=== PATIENT | male | born 1945 | race Caucasian/White ===

== ENCOUNTER 2017-04-25 11:12 | Inpatient (IN) | payer MEDICARE, BC ==
[2017-04-25] MEDS ORDERED: IPRATROPIUM-ALBUTEROL 3 ML NEB INHALATION STA ×2 (11:25→13:24)
[2017-04-25] MEDS ORDERED: MAGNESIUM SULFATE-D5W PMX 1 GM in DEXTROSE/WATER 1 100ML.BAG IVPB STA (11:25)
[2017-04-25] MEDS ORDERED: SODIUM CHLORIDE 0.9% 1,000 ML IV STA (11:25)
[2017-04-25] MEDS ORDERED: methylPREDNISolone SOD SUCCI 125 MG/2 ML VIAL IV STA (11:25)
--- NOTE | 2017-04-25 11:29 | ED ---
SOB HPI - General Chief Complaint: Shortness of Breath Stated Complaint: SOB Time Seen by Provider: 04/25/17 11:21 Source: patient, RN notes reviewed Mode of arrival: ambulatory Limitations: no limitations - History of Present Illness Initial Comments: This is a 72-year-old male history of asthma who is a former smoker who quit in 1967 who states he had developed pneumonia before [place] of this past year has had some breathing difficulty since then who does state he had the onset over last several days of progressively worsening shortness of breath no fevers chills or sweats he has had nasal congestion with nasal drip he states he blows his nose and occasionally has green material out of it. He has no chest pain just shortness of breath and exertional dyspnea. No edema to his lower extremities. No other complaints such as earache or sore throat. MD Complaint: shortness of breath, cough - Related Data Home Medications Medication Instructions Recorded Confirmed Losartan Potassium [Cozaar] 100 mg PO DAILY 09/19/13 04/25/17 Metoprolol Tartrate [Lopressor] 50 mg PO BID 09/19/13 04/25/17 Omeprazole [PriLOSEC] 20 mg PO BID 09/19/13 04/25/17 Ipratropium Nebulized [Atrovent 0.5 mg INHALATION RT-BID 03/03/15 04/25/17 Nebulized] Albuterol Nebulized [Ventolin 2.5 mg INHALATION RT-Q4H PRN 02/26/16 04/25/17 Nebulized] Aspirin EC [Ecotrin] 325 mg PO QAM 02/26/16 04/25/17 Cetirizine HCl [Zyrtec] 10 mg PO DAILY 02/26/16 04/25/17 Pravastatin Sodium [Pravachol] 20 mg PO HS 02/26/16 04/25/17 Ubidecarenone [Co Q-10] 200 mg PO DAILY 02/26/16 04/25/17 Beclomethasone Dipropionate [Qvar 2 puff INHALATION RT-BID 04/25/17 04/25/17 80 mcg] Budesonide [Pulmicort] 0.5 mg INHALATION RT-BID 04/25/17 04/25/17 Hydrochlorothiazide [Hydrodiuril] 25 mg PO DAILY 04/25/17 04/25/17 Tamsulosin HCl [Flomax] 0.4 mg PO DAILY 04/25/17 04/25/17 Allergies Allergy/AdvReac Type Severity Reaction Status Date / Time shellfish derived Allergy Anaphylaxis Verified 04/25/17 11:28 bug bites Allergy Unknown Uncoded 04/25/17 11:16 cats Allergy Unknown Uncoded 04/25/17 11:16 cockroaches Allergy Unknown Uncoded 04/25/17 11:16 dogs Allergy Unknown Uncoded 04/25/17 11:16 grass Allergy Unknown Uncoded 04/25/17 11:16 mold Allergy Unknown Uncoded 04/25/17 11:16 polln Allergy Unknown Uncoded 04/25/17 11:16 ragweed Allergy Unknown Uncoded 04/25/17 11:16 soy Allergy Unknown Uncoded 04/25/17 11:16 Vinegar Allergy Unknown Uncoded 04/25/17 11:16 Review of Systems ROS Statement: Those systems with pertinent positive or pertinent negative responses have been documented in the HPI. ROS Other: All systems not noted in ROS Statement are negative. Past Medical History Past Medical History: Asthma, GERD/Reflux, Hyperlipidemia, Hypertension, Osteoarthritis (OA) Additional Past Medical History / Comment(s): sinus problems, hx hiatal hernia History of Any Multi-Drug Resistant Organisms: None Reported Past Surgical History: Appendectomy, Cholecystectomy, Hernia Repair, Orthopedic Surgery Additional Past Surgical History / Comment(s): Shoulder Surgery Past Anesthesia/Blood Transfusion Reactions: No Reported Reaction Past Psychological History: No Psychological Hx Reported Smoking Status: Never smoker Past Alcohol Use History: Rare Past Drug Use History: None Reported - Past Family History Father Family Medical History: Congestive Heart Failure (CHF), Diabetes Mellitus General Exam - General Exam Comments Initial Comments: This is a well-developed well-nourished awake alert oriented 3 male Limitations: no limitations General appearance: alert, anxious, in distress Head exam: Present: atraumatic, normocephalic, normal inspection Eye exam: Present: normal appearance, PERRL, EOMI. Absent: scleral icterus, conjunctival injection, periorbital swelling ENT exam: Present: mucous membranes dry, TM's normal bilaterally, other (Boggy nasal mucosa no overt drainage at this time.) Neck exam: Present: normal inspection, full ROM, other (No stridor JVD or bruits ). Absent: tenderness, meningismus, lymphadenopathy Respiratory exam: Present: wheezes, accessory muscle use, decreased breath sounds Cardiovascular Exam: Present: regular rate, normal rhythm, normal heart sounds. Absent: systolic murmur, diastolic murmur, rubs, gallop, clicks GI/Abdominal exam: Present: soft, normal bowel sounds. Absent: distended, tenderness, guarding, rebound, rigid Extremities exam: Present: normal inspection, full ROM, normal capillary refill. Absent: tenderness, pedal edema, joint swelling, calf tenderness Back exam: Present: normal inspection Neurological exam: Present: alert, oriented X3, CN II-XII intact Psychiatric exam: Present: normal affect, normal mood Skin exam: Present: warm, dry, intact, normal color. Absent: rash Course Vital Signs 04/25/17 04/25/17 04/25/17 11:14 11:30 11:39 Temperature 99.0 F Pulse Rate 94 87 84 Respiratory 26 H Rate Blood Pressure 161/94 O2 Sat by Pulse 95 Oximetry 04/25/17 04/25/17 04/25/17 11:40 12:59 13:27 Temperature Pulse Rate 83 83 79 Respiratory 24 22 Rate Blood Pressure 126/101 120/81 O2 Sat by Pulse 93 L 91 L Oximetry 04/25/17 04/25/17 04/25/17 13:38 14:29 15:29 Temperature Pulse Rate 79 79 82 Respiratory 20 20 Rate Blood Pressure 138/77 127/70 O2 Sat by Pulse 90 L 91 L Oximetry - Reevaluation(s) Reevaluation #1: 04/25/17 13:24 After initial treatment the patient states he is started feel somewhat better but physical exam reveals markedly diminished breath sounds still with diffuse wheezing. Repeat updraft has been ordered. Reevaluation #2: 04/25/17 15:44 Patient still is dyspneic with wheezing bilaterally. He will be admitted we did a long discussion regarding previous reactions to shellfish he had a very bad reaction with diffuse swelling he does not want to have a CAT scan. He'll be admitted for evaluation we performed by Dr. Wilkerson. Nuclear medicine scan is considered. Medical Decision Making - Lab Data Result diagrams: 04/25/17 11:38 04/25/17 11:38 Lab Results 04/25/17 04/25/17 04/25/17 Range/Units 11:38 11:38 11:38 WBC 10.2 (3.8-10.6) k/uL RBC 5.86 (4.30-5.90) m/uL Hgb 16.7 (13.0-17.5) gm/dL Hct 52.4 (39.0-53.0) % MCV 89.4 (80.0-100.0) fL MCH 28.5 (25.0-35.0) pg MCHC 31.9 (31.0-37.0) g/dL RDW 13.3 (11.5-15.5) % Plt Count 279 (150-450) k/uL Neutrophils % 64 % Lymphocytes % 19 % Monocytes % 5 % Eosinophils % 10 % Basophils % 2 % Neutrophils # 6.5 (1.3-7.7) k/uL Lymphocytes # 1.9 (1.0-4.8) k/uL Monocytes # 0.5 (0-1.0) k/uL Eosinophils # 1.0 H (0-0.7) k/uL Basophils # 0.2 (0-0.2) k/uL PT (9.0-12.0) sec INR (<1.2) APTT (22.0-30.0) sec D-Dimer (<0.60) mg/L FEU Sodium 140 (137-145) mmol/L Potassium 4.6 (3.5-5.1) mmol/L Chloride 102 (98-107) mmol/L Carbon Dioxide 27 (22-30) mmol/L Anion Gap 11 mmol/L BUN 15 (9-20) mg/dL Creatinine 0.85 (0.66-1.25) mg/dL Est GFR (MDRD) Af Amer >60 (>60 ml/min/1.73 sqM) Est GFR (MDRD) Non-Af >60 (>60 ml/min/1.73 sqM) Glucose 95 (74-99) mg/dL Plasma Lactic Acid Vincent (0.7-2.0) mmol/L Calcium 9.6 (8.4-10.2) mg/dL Magnesium 1.9 (1.6-2.3) mg/dL Total Bilirubin 1.7 H (0.2-1.3) mg/dL AST 30 (17-59) U/L ALT 42 (21-72) U/L Alkaline Phosphatase 101 (38-126) U/L Total Creatine Kinase 203 H (55-170) U/L CK-MB (CK-2) 3.4 H* (0.0-2.4) ng/mL CK-MB (CK-2) Rel Index 1.7 Troponin I <0.012 (0.000-0.034) ng/mL NT-Pro-B Natriuret Pep pg/mL Total Protein 7.2 (6.3-8.2) g/dL Albumin 4.1 (3.5-5.0) g/dL Influenza Type A RNA (Not Detectd) Influenza Type B (PCR) (Not Detectd) 04/25/17 04/25/17 04/25/17 Range/Units 11:38 11:38 11:38 WBC (3.8-10.6) k/uL RBC (4.30-5.90) m/uL Hgb (13.0-17.5) gm/dL Hct (39.0-53.0) % MCV (80.0-100.0) fL MCH (25.0-35.0) pg MCHC (31.0-37.0) g/dL RDW (11.5-15.5) % Plt Count (150-450) k/uL Neutrophils % % Lymphocytes % % Monocytes % % Eosinophils % % Basophils % % Neutrophils # (1.3-7.7) k/uL Lymphocytes # (1.0-4.8) k/uL Monocytes # (0-1.0) k/uL Eosinophils # (0-0.7) k/uL Basophils # (0-0.2) k/uL PT 10.3 (9.0-12.0) sec INR 1.1 (<1.2) APTT 23.9 (22.0-30.0) sec D-Dimer 0.78 H (<0.60) mg/L FEU Sodium (137-145) mmol/L Potassium (3.5-5.1) mmol/L Chloride (98-107) mmol/L Carbon Dioxide (22-30) mmol/L Anion Gap mmol/L BUN (9-20) mg/dL Creatinine (0.66-1.25) mg/dL Est GFR (MDRD) Af Amer (>60 ml/min/1.73 sqM) Est GFR (MDRD) Non-Af (>60 ml/min/1.73 sqM) Glucose (74-99) mg/dL Plasma Lactic Acid Vincent 1.0 (0.7-2.0) mmol/L Calcium (8.4-10.2) mg/dL Magnesium (1.6-2.3) mg/dL Total Bilirubin (0.2-1.3) mg/dL AST (17-59) U/L ALT (21-72) U/L Alkaline Phosphatase (38-126) U/L Total Creatine Kinase (55-170) U/L CK-MB (CK-2) (0.0-2.4) ng/mL CK-MB (CK-2) Rel Index Troponin I (0.000-0.034) ng/mL NT-Pro-B Natriuret Pep 39 pg/mL Total Protein (6.3-8.2) g/dL Albumin (3.5-5.0) g/dL Influenza Type A RNA (Not Detectd) Influenza Type B (PCR) (Not Detectd) 04/25/17 Range/Units 11:40 WBC (3.8-10.6) k/uL RBC (4.30-5.90) m/uL Hgb (13.0-17.5) gm/dL Hct (39.0-53.0) % MCV (80.0-100.0) fL MCH (25.0-35.0) pg MCHC (31.0-37.0) g/dL RDW (11.5-15.5) % Plt Count (150-450) k/uL Neutrophils % % Lymphocytes % % Monocytes % % Eosinophils % % Basophils % % Neutrophils # (1.3-7.7) k/uL Lymphocytes # (1.0-4.8) k/uL Monocytes # (0-1.0) k/uL Eosinophils # (0-0.7) k/uL Basophils # (0-0.2) k/uL PT (9.0-12.0) sec INR (<1.2) APTT (22.0-30.0) sec D-Dimer (<0.60) mg/L FEU Sodium (137-145) mmol/L Potassium (3.5-5.1) mmol/L Chloride (98-107) mmol/L Carbon Dioxide (22-30) mmol/L Anion Gap mmol/L BUN (9-20) mg/dL Creatinine (0.66-1.25) mg/dL Est GFR (MDRD) Af Amer (>60 ml/min/1.73 sqM) Est GFR (MDRD) Non-Af (>60 ml/min/1.73 sqM) Glucose (74-99) mg/dL Plasma Lactic Acid Vincent (0.7-2.0) mmol/L Calcium (8.4-10.2) mg/dL Magnesium (1.6-2.3) mg/dL Total Bilirubin (0.2-1.3) mg/dL AST (17-59) U/L ALT (21-72) U/L Alkaline Phosphatase (38-126) U/L Total Creatine Kinase (55-170) U/L CK-MB (CK-2) (0.0-2.4) ng/mL CK-MB (CK-2) Rel Index Troponin I (0.000-0.034) ng/mL NT-Pro-B Natriuret Pep pg/mL Total Protein (6.3-8.2) g/dL Albumin (3.5-5.0) g/dL Influenza Type A RNA Not Detected (Not Detectd) Influenza Type B (PCR) Not Detected (Not Detectd) - EKG Data -: EKG Interpreted by Oh EKG shows normal: sinus rhythm (Sinus rhythm with a rate of 88. Interval 182 QRS duration 90 daily QT since QTC of 362/[address]-T wave changes are is artifact present.) Critical Care Time Critical Care Time: Yes Critical Care Time: 37 minutes of critical care time which includes initial presentation with history physical labs x-rays multiple re-evaluations the patient response to therapy. Discussed with the admitting physician discussing the family again admission orders and documentation of the above. Disposition Clinical Impression: Acute exacerbation of chronic obstructive airways disease, Adult respiratory distress syndrome, D-dimer, elevated Disposition: ADMITTED IP TO THIS [facility] Condition: Stable Referrals: Abdirahman Amos DO [Primary Care Provider] - 1-2 days
[2017-04-25 11:56] LABS: Basophils # (A) 0.2 k/uL (0-0.2); Basophils % (A) 2 %; Eosinophils % (A) 10 %; HCT 52.4 % (39.0-53.0); HGB 16.7 gm/dL (13.0-17.5); Lymphocytes # (A) 1.9 k/uL (1.0-4.8); Lymphocytes % (A) 19 %; MCH 28.5 pg (25.0-35.0); MCHC 31.9 g/dL (31.0-37.0); MCV 89.4 fL (80.0-100.0); Mean Platelet Volume 6.6; Monocytes # (A) 0.5 k/uL (0-1.0); Monocytes % (A) 5 %; Neutrophils # (A) 6.5 k/uL (1.3-7.7); Neutrophils % (A) 64 %; Platelet Count 279 k/uL (150-450); RBC 5.86 m/uL (4.30-5.90); RDW 13.3 % (11.5-15.5); WBC 10.2 k/uL (3.8-10.6)
[2017-04-25 12:07] LABS: ALT 42 U/L (21-72); AST 30 U/L (17-59); Albumin 4.1 g/dL (3.5-5.0); Alkaline Phosphatase 101 U/L (38-126); Anion Gap 11 mmol/L; Blood Urea Nitrogen 15 mg/dL (9-20); Calcium 9.6 mg/dL (8.4-10.2); Carbon Dioxide 27 mmol/L (22-30); Chloride 102 mmol/L (98-107); Glucose 95 mg/dL (74-99); Magnesium 1.9 mg/dL (1.6-2.3); Potassium 4.6 mmol/L (3.5-5.1); Sodium 140 mmol/L (137-145); Total Bilirubin 1.7 mg/dL (0.2-1.3); Total Protein 7.2 g/dL (6.3-8.2)
[2017-04-25 12:11] LABS: D-Dimer 0.78 mg/L FEU (<0.60)
[2017-04-25 12:15] LABS: INR 1.1 (<1.2); Partial Thromboplastin Time 23.9 sec (22.0-30.0); Prothrombin Time 10.3 sec (9.0-12.0)
[2017-04-25 12:21] LABS: Creatine Kinase 203 U/L (55-170)
--- NOTE | 2017-04-25 12:22 | XR ---
EXAMINATION TYPE: XR chest 2V DATE OF EXAM: 04/25/2017 HISTORY: difficulty breathing. REFERENCE: Previous study dated 02/27/2016. FINDINGS: The lungs are overinflated but clear. Pleural spaces are clear. The heart is not enlarged. IMPRESSION: COPD.
[2017-04-25 12:34] LABS: Troponin I <0.012 ng/mL (0.000-0.034)
[2017-04-25 12:40] LABS: Creatine Kinase MB 3.4 ng/mL (0.0-2.4)
[2017-04-25] MEDS ORDERED: HEPARIN SODIUM,PORCINE 5,000 UNIT/ML 1 ML VIAL SQ SCH (16:00)
[2017-04-25] MEDS ORDERED: methylPREDNISolone SOD SUCCI 125 MG/2 ML VIAL IV SCH (18:00)
[2017-04-25 18:25] VITALS: BMI 34.8
--- NOTE | 2017-04-25 18:31 | NM ---
EXAMINATION TYPE: NM pul vent and perfuse DATE OF EXAM: 04/25/2017 COMPARISON: Chest radiograph of the same date HISTORY: Shortness of breath TECHNIQUE: Utilizing inhalation of 68.9 mCi Tc 99m DTPA aerosol and intravenous injection of 5.42 mC i of Tc 99m MAA, ventilation and perfusion images are acquired post injection in multiple projections . FINDINGS: There is clumping of radiotracer centrally most commonly related to the patient's known COPD and/or b ronchitis. There is also air trapping diffusely on ventilation images with ventilation perfusion mism atches throughout the entirety of the lungs on the anterior view specifically. IMPRESSION: The exam is limited secondary to underlying COPD and clumping of radiotracer centrally on the ventila tion images. Therefore this is intermediate probability for pulmonary embolism. Central clumping may relate to COPD and/or bronchitis with air trapping also related to underlying COPD.
[2017-04-25] MEDS: SODIUM CHLORIDE 0.9% 1,000 ML IV SCH (18:51)
[2017-04-25] MEDS ORDERED: IPRATROPIUM-ALBUTEROL 3 ML NEB INHALATION SCH (20:00)
[2017-04-25] MEDS ORDERED: NALOXONE 0.4 MG/ML 1 ML VIAL IV PRN (20:04)
[2017-04-25] MEDS ORDERED: CALCIUM CARBONATE 500 MG CHEWABLE PO PRN (20:04)
[2017-04-25] MEDS ORDERED: LORazepam 0.5 MG TAB PO PRN (20:04)
[2017-04-25] MEDS ORDERED: LACTULOSE 20 GM/30 ML CUP PO PRN (20:04)
[2017-04-25] MEDS ORDERED: ONDANSETRON 4 MG/2 ML VIAL IVP PRN (20:04)
[2017-04-25] MEDS ORDERED: IBUPROFEN 400 MG TAB PO PRN (20:04)
[2017-04-25] MEDS ORDERED: ACETAMINOPHEN TAB 325 MG TAB PO PRN (20:04)
[2017-04-25] MEDS ORDERED: traMADol 50 MG TAB PO PRN (20:04)
[2017-04-25] MEDS: PRAVASTATIN SODIUM 20 MG TAB PO SCH (20:53)
[2017-04-25] MEDS: METOPROLOL TARTRATE 50 MG TAB PO SCH (20:53)
[2017-04-25] MEDS: PANTOPRAZOLE 40 MG TABLET PO SCH (20:55)
[2017-04-25] MEDS ORDERED: IPRATROPIUM-ALBUTEROL 3 ML NEB INHALATION PRN (20:57)
[2017-04-25] MEDS ORDERED: BUDESONIDE 1 MG/2 ML NEBU INHALATION SCH (21:15)
--- NOTE | 2017-04-25 21:20 | P.HPIM ---
History of Present Illness H&P Date: 04/25/17 Chief Complaint: Short of breath Presenting complaint: Short of breath History of present complaint: This is a very pleasant 72-year-old patient of Dr. Amos. Also follows with chief orthoptist Dr. Ambriz/P daily. Chronic stable medical conditions include GERD, hyperlipidemia, hypertension, osteoarthritis, obstructive sleep apnea uses CPAP machine, and BPH. Patient on Solo had a bout of pneumonia given antibiotics completed that then had a relapse again did again give antibiotics and steroids. Has never really recovered. Patient normally sleeps up in a chair. Now presents with worsening wheezing cough. Sputum is clear. Slimy secretions through his nose. Congested. No fever. Appetite is fair. Quite a bit short of breath at rest. Patient's at the bedside. GEN.: Tired EYES: None HEENT: Nasal stuffiness and dripping NECK: None RESPIRATORY: As above CARDIOVASCULAR: None GASTROINTESTINAL: None GENITOURINARY: None MUSCULOSKELETAL: Arthritic pain in many joints including the hands LYMPHATICS: None HEMATOLOGICAL: None PSYCHIATRY: None NEUROLOGICAL: None Past medical history: Asthma, GERD, hypertension, hyperlipidemia, osteoarthritis, obstructive sleep apnea uses CPAP, BPH Social history: . Does not smoke. Alcohol rarely. 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 VITAL SIGNS: 99, 94, 26, 161/94, 95% on room air GENERAL: BMI 34.9, bowel built, sitting up at the edge of the bed short of breath. EYES: Pupils equal. Conjunctiva normal. HEENT: External appearance of nose and ears normal, oral cavity grossly normal. NECK: JVD not raised; masses not palpable. HEART: First and second heart sounds are normal; no edema. LUNGS: Respiratory rate increased, accessory muscles or working, not able to speak in full sentences,. ABDOMEN: Soft, distended, nontender, liver spleen not palpable, no masses palpable. LYMPHATICS: No lymph nodes palpable in the axilla and neck. PSYCH: Alert and oriented x3; mood and affect somewhat anxiousl. NEUROLOGICAL: Cranial nerves grossly intact; no facial asymmetry, power and sensation grossly intact. MUSCULOSKELETAL: Evidence of osteoarthritis especially in the hands Investigations: White count 10.2, hemoglobin 16.7, increased eosinophils Potassium 4.6 BUN 15, creatinine 0.85 Checks x-ray-lower zone infiltrate Assessment: -Severe persistent asthma with acute exacerbation, likely from viral pneumonitis , cannot rule out a bacterial component -Obstructive sleep apnea uses CPAP machine -Chronic GERD -Chronic essential hypertension Chronic hyperlipidemia -Primary osteoarthritis of multiple joints including the hands -BPH -Obesity BMI 34.9 Plan: Start the patient on nebulized bronchodilators every 4 hours, IV Solu-Medrol, inhaled steroids, Mucinex, humidified oxygen. Dr. Shaneka michaels was consulted. Patient had a mildly elevated d-dimer and did have a VQ scan in the ER that showed intermediate probability. Patient's pretest probability was low. I will let Dr. Wilkerson decide about further intervention. We will order Doppler ultrasound of the lower extremity. Care was discussed in detail with the patient and at the bedside. Questions were answered. Past Medical History Past Medical History: Asthma, GERD/Reflux, Hyperlipidemia, Hypertension, Osteoarthritis (OA) Additional Past Medical History / Comment(s): sinus problems, hx hiatal hernia History of Any Multi-Drug Resistant Organisms: None Reported Past Surgical History: Appendectomy, Cholecystectomy, Hernia Repair, Orthopedic Surgery Additional Past Surgical History / Comment(s): Shoulder Surgery Past Anesthesia/Blood Transfusion Reactions: No Reported Reaction Past Psychological History: No Psychological Hx Reported Smoking Status: Never smoker Past Alcohol Use History: Rare Past Drug Use History: None Reported - Past Family History Father Family Medical History: Congestive Heart Failure (CHF), Diabetes Mellitus Medications and Allergies Home Medications Medication Instructions Recorded Confirmed Type Losartan Potassium [Cozaar] 100 mg PO DAILY 09/19/13 04/25/17 History Metoprolol Tartrate [Lopressor] 50 mg PO BID 09/19/13 04/25/17 History Omeprazole [PriLOSEC] 20 mg PO BID 09/19/13 04/25/17 History Ipratropium Nebulized [Atrovent 0.5 mg INHALATION RT-BID 03/03/15 04/25/17 History Nebulized] Albuterol Nebulized [Ventolin 2.5 mg INHALATION RT-Q4H PRN 02/26/16 04/25/17 History Nebulized] Aspirin EC [Ecotrin] 325 mg PO QAM 02/26/16 04/25/17 History Cetirizine HCl [Zyrtec] 10 mg PO DAILY 02/26/16 04/25/17 History Pravastatin Sodium [Pravachol] 20 mg PO HS 02/26/16 04/25/17 History Ubidecarenone [Co Q-10] 200 mg PO DAILY 02/26/16 04/25/17 History Beclomethasone Dipropionate [Qvar 2 puff INHALATION RT-BID 04/25/17 04/25/17 History 80 mcg] Budesonide [Pulmicort] 0.5 mg INHALATION RT-BID 04/25/17 04/25/17 History Hydrochlorothiazide [Hydrodiuril] 25 mg PO DAILY 04/25/17 04/25/17 History Tamsulosin HCl [Flomax] 0.4 mg PO DAILY 04/25/17 04/25/17 History Allergies Allergy/AdvReac Type Severity Reaction Status Date / Time shellfish derived Allergy Anaphylaxis Verified 04/25/17 11:28 bug bites Allergy Unknown Uncoded 04/25/17 11:16 cats Allergy Unknown Uncoded 04/25/17 11:16 cockroaches Allergy Unknown Uncoded 04/25/17 11:16 dogs Allergy Unknown Uncoded 04/25/17 11:16 grass Allergy Unknown Uncoded 04/25/17 11:16 mold Allergy Unknown Uncoded 04/25/17 11:16 polln Allergy Unknown Uncoded 04/25/17 11:16 ragweed Allergy Unknown Uncoded 04/25/17 11:16 soy Allergy Unknown Uncoded 04/25/17 11:16 Vinegar Allergy Unknown Uncoded 04/25/17 11:16 Results CBC & Chem 7: 04/25/17 11:38 04/25/17 11:38
[2017-04-25] MEDS ORDERED: ENOXAPARIN 40 MG/0.4 ML SYRINGE SQ SCH (21:30)
[2017-04-25] MEDS: guaiFENesin 600 MG TABLET.ER PO SCH (22:09)
[2017-04-25] MEDS: LORATADINE-PSEUDOEPH 5-120 MG 1 EACH TAB.ER.12H PO SCH (22:10)
[2017-04-25] MEDS: MONTELUKAST 10 MG TAB PO SCH (22:10)
[2017-04-25 22:21] LABS: Glucose,Whole Blood 211 mg/dL (75-99)
[2017-04-25] MEDS: methylPREDNISolone SOD SUCCI 125 MG/2 ML VIAL IV SCH (23:39)
[2017-04-25] MEDS: IPRATROPIUM-ALBUTEROL 3 ML NEB INHALATION SCH (23:42)
[2017-04-26] MEDS ORDERED: methylPREDNISolone SOD SUCCI 40 MG/ML 1 ML VIAL IV SCH (03:00)
[2017-04-26] MEDS: IPRATROPIUM-ALBUTEROL 3 ML NEB INHALATION SCH ×5 (03:33→20:51)
[2017-04-26] MEDS: methylPREDNISolone SOD SUCCI 125 MG/2 ML VIAL IV SCH ×4 (05:58→23:58)
[2017-04-26 06:13] LABS: Glucose,Whole Blood 194 mg/dL (75-99)
[2017-04-26 06:35] LABS: Basophils % (A) 0 %; Eosinophils % (A) 0 %; HCT 48.9 % (39.0-53.0); HGB 15.9 gm/dL (13.0-17.5); Lymphocytes # (A) 1.1 k/uL (1.0-4.8); Lymphocytes % (A) 8 %; MCH 28.1 pg (25.0-35.0); MCHC 32.6 g/dL (31.0-37.0); MCV 86.2 fL (80.0-100.0); Mean Platelet Volume 6.7; Monocytes # (A) 0.3 k/uL (0-1.0); Monocytes % (A) 2 %; Neutrophils # (A) 11.7 k/uL (1.3-7.7); Neutrophils % (A) 89 %; Platelet Count 266 k/uL (150-450); RBC 5.66 m/uL (4.30-5.90); RDW 13.2 % (11.5-15.5); WBC 13.1 k/uL (3.8-10.6)
[2017-04-26] MEDS: INSULIN ASPART 100 UNIT/ML 1 ML 10 ML VIAL SQ SCH ×4 (06:45→21:44)
[2017-04-26 06:53] LABS: Anion Gap 14 mmol/L; Blood Urea Nitrogen 22 mg/dL (9-20); Calcium 9.5 mg/dL (8.4-10.2); Carbon Dioxide 24 mmol/L (22-30); Chloride 102 mmol/L (98-107); Glucose 201 mg/dL (74-99); Potassium 4.1 mmol/L (3.5-5.1); Sodium 140 mmol/L (137-145)
[2017-04-26] MEDS: guaiFENesin 600 MG TABLET.ER PO SCH ×2 (07:55→21:50)
[2017-04-26] MEDS: HEPARIN SODIUM,PORCINE 5,000 UNIT/ML 1 ML VIAL SQ SCH ×2 (07:55→21:50)
[2017-04-26] MEDS: ASPIRIN 81 MG PO SCH (07:55)
[2017-04-26] MEDS: HYDROCHLOROTHIAZIDE 25 MG TAB PO SCH (07:56)
[2017-04-26] MEDS: LOSARTAN 50 MG TAB PO SCH (07:56)
[2017-04-26] MEDS: LORATADINE-PSEUDOEPH 5-120 MG 1 EACH TAB.ER.12H PO SCH ×2 (07:56→21:50)
[2017-04-26] MEDS: METOPROLOL TARTRATE 50 MG TAB PO SCH ×2 (07:57→21:50)
[2017-04-26] MEDS: PANTOPRAZOLE 40 MG TABLET PO SCH ×2 (07:57→21:50)
[2017-04-26] MEDS: TAMSULOSIN 0.4 MG CAP.ER.24H PO SCH (07:57)
[2017-04-26] MEDS ORDERED: IPRATROPIUM-ALBUTEROL 3 ML NEB INHALATION SCH (08:00)
[2017-04-26] MEDS ORDERED: ASPIRIN 325 MG TAB PO SCH (09:00)
[2017-04-26] MEDS ORDERED: LORATADINE 10 MG TAB PO SCH (09:00)
--- NOTE | 2017-04-26 09:28 | US ---
EXAMINATION TYPE: US venous doppler duplex LE DATE OF EXAM: 04/26/2017 8:47 AM COMPARISON: NONE CLINICAL HISTORY: r/o dvt. Elevated D Dimer. No swelling or redness. No blood thinners. No hx of b lood clots. SIDE PERFORMED: Bilateral TECHNIQUE: The lower extremity deep venous system is examined utilizing real time linear array sonog ninoska with graded compression, doppler sonography and color-flow sonography. VESSELS IMAGED: External Iliac Vein (EIV) Common Femoral Vein Deep Femoral Vein Greater Saphenous Vein * Femoral Vein Popliteal Vein Small Saphenous Vein * Proximal Calf Veins (* superficial vessels) Right Leg: Negative for DVT Left Leg: Negative for DVT Grayscale, color doppler, spectral doppler imaging performed of the deep veins of the lower extremiti es. There is normal flow, compressibility, vascular waveforms. IMPRESSION: No sonographic evidence of deep venous arthrosis within either lower extremity.
[2017-04-26] MEDS ORDERED: SODIUM CHLORIDE 0.65% NASAL SPRAY 44 ML BTL NASAL PRN (09:40)
--- NOTE | 2017-04-26 09:50 | P.PN ---
Subjective Progress Note Date: 04/26/17 HPI: This is a 72-year-old male well-known to our services who came into the emergency room on 04/25/2017 with complaints of progressively worsening shortness of breath cough and wheezing that had been going on for approximately 4-5 days. He denied any fevers or chills at home. He has been treated over the last 2 months for 3 episodes of asthma with exacerbation with steroids and antibiotics. He was told he had a pneumonia one of those times. He has been to see us in the past and had been on an anti-IgE treatment with Xolair, which she stopped approximately a year ago. His sputum was clear to white/yellow. He has been having lots of nasal drainage as well. 04/26/17- patient is being seen examined and evaluated today on rounds. Patient is resting up in bed on 2 L of supplemental oxygen via nasal cannula. The patient does not utilize oxygen at home. Patient continues to state that he has been bringing up copious amounts of white/yellow phlegm. He continues to have shortness of breath with exertion and activity. He continues to have a congested cough. Venous Doppler of his bilateral lower extremity was negative for DVT. He is afebrile no further complaints. Objective - Vital Signs Vital signs: Vital Signs Temp 97.2 F L 04/26/17 08:00 Pulse 96 04/26/17 08:09 Resp 20 04/26/17 08:00 BP 139/81 04/26/17 08:00 Pulse Ox 94 L 04/26/17 08:00 Intake & Output 04/25/17 04/26/17 04/26/17 18:59 06:59 18:59 Intake Total 1440 Output Total 1251 Balance 189 Weight 97.976 kg 97.7 kg Intake: Amount of Fluid Infused ( 800 ml) Intake, IV Titration 140 Amount Sodium Chloride 0.9% 1, 140 000 ml @ 20 mls/hr IV . Q24H [facility] Rx#:[id number] Oral 500 Output: Urine 1251 Other: Voiding Method Toilet Toilet # Voids 400 - Exam GENERAL EXAM: Alert, comfortable in no apparent distress. HEAD: Normocephalic. EYES: Normal reaction of pupils, equal size. NOSE: Slightly dry, Clear with pink turbinates. THROAT: No erythema or exudates. NECK: No masses, no JVD. CHEST: No chest wall deformity. LUNGS: Lungs noted to have scattered rhonchi throughout all with end expiratory wheezes. Bases diminished CVS: S1 and S2 normal with no audible mumurs, regular rhythm. ABDOMEN: No hepatosplenomegaly, normal bowel sounds, no guarding or rigidity. EXTREMITIES: No edema noted, pedal pulses palpable. CENTRAL NERVOUS SYSTEM: No focal deficits, tone is normal in all 4 extremities. - Labs CBC & Chem 7: 04/26/17 06:01 04/26/17 06:01 Labs: Abnormal Lab Results - Last 24 Hours (Table) 04/25/17 04/25/17 04/25/17 Range/Units 11:38 11:38 11:38 WBC (3.8-10.6) k/uL Neutrophils # (1.3-7.7) k/uL Eosinophils # 1.0 H (0-0.7) k/uL D-Dimer (<0.60) mg/L FEU BUN (9-20) mg/dL Glucose (74-99) mg/dL POC Glucose (mg/dL) (75-99) mg/dL Total Bilirubin 1.7 H (0.2-1.3) mg/dL Total Creatine Kinase 203 H (55-170) U/L CK-MB (CK-2) 3.4 H* (0.0-2.4) ng/mL 04/25/17 04/25/17 04/26/17 Range/Units 11:38 22:19 06:01 WBC 13.1 H (3.8-10.6) k/uL Neutrophils # 11.7 H (1.3-7.7) k/uL Eosinophils # (0-0.7) k/uL D-Dimer 0.78 H (<0.60) mg/L FEU BUN (9-20) mg/dL Glucose (74-99) mg/dL POC Glucose (mg/dL) 211 H (75-99) mg/dL Total Bilirubin (0.2-1.3) mg/dL Total Creatine Kinase (55-170) U/L CK-MB (CK-2) (0.0-2.4) ng/mL 04/26/17 04/26/17 Range/Units 06:01 06:11 WBC (3.8-10.6) k/uL Neutrophils # (1.3-7.7) k/uL Eosinophils # (0-0.7) k/uL D-Dimer (<0.60) mg/L FEU BUN 22 H (9-20) mg/dL Glucose 201 H (74-99) mg/dL POC Glucose (mg/dL) 194 H (75-99) mg/dL Total Bilirubin (0.2-1.3) mg/dL Total Creatine Kinase (55-170) U/L CK-MB (CK-2) (0.0-2.4) ng/mL Assessment and Plan Assessment: Assessment Acute exacerbation of chronic severe persistent asthma Acute hypoxic respiratory failure requiring supplemental oxygen Tracheobronchitis Obstructive sleep apnea GERD Hypertension Hyperlipidemia Osteoarthritis Plan Medications have been reviewed and will be continued as ordered. We will add budesonide to his current nebulizer treatments. Obtain sputum culture. Initiate and encourage incentive spirometer. Add saline nasal spray. Continue with pulmonary hygiene, coughing and deep breathing exercises, and supportive care. Supplemental oxygen to maintain oxygen saturations of 92% or better. Continue nebulizer treatments. will be bringing in an patient's home CPAP machine to use each night. GI and DVT prophylaxis. We will continue to monitor labs/results and adjust treatment as necessary. Further recommendations pending. I performed an examination of the patient and discussed their management with the nurse practitioner. I have reviewed the nurse practitioner's note and agree with the documented findings and plan of care.
--- NOTE | 2017-04-26 10:13 | CONS ---
CONSULTATION DATE OF SERVICE: 04/25/2017. HISTORY: Dre Dunbar is a 72-year-old male with a known history of severe asthma, who presented to the ED with increasing shortness of breath of about 4 to 5 days duration. He did not have any fever or chills at the time. He had been treated over the last 2 months for 3 episodes of asthma with exacerbation with steroids and antibiotics. He was told he had pneumonia on one of those times. He had been seen by us in the past and had been on anti-IgE treatment with Xolair, which he stopped approximately a year ago. PAST MEDICAL HISTORY: Positive for hypertension, hyperlipidemia, asthma, gastroesophageal reflux disease, osteoarthritis, sinus problems, tonsillectomy, hernia repair, cholecystectomy. FAMILY HISTORY: Positive for diabetes mellitus and acute myocardial infarction in his father who at age 42. 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 He drank alcohol occasionally in the past. REVIEW OF SYSTEMS: Noncontributory. MEDICATIONS: Prior to admission: 1. Co Q10. 2. Flomax. 3. Pravachol. 4. Prilosec. 5. Lopressor. 6. Cozaar. 7. Atrovent. 8. HydroDIURIL. 9. Zyrtec. 10.Pulmicort. 11.Qvar. 12.Ecotrin. 13.Albuterol nebulized. ALLERGIES: The patient is allergic to SHELLFISH, BUGS, CATS, DOGS, COCKROACHES, GRASS, MOLD, POLLEN, RAGWEED, SOY, VINEGAR. PHYSICAL EXAMINATION: Respiratory rate is 20, pulse rate of 108, temperature 98, O2 saturation on 3 L by nasal cannula is 91%. HEENT reveals pupils that are equal. Chest reveals decreased breath sounds. Prolonged expiration. Bilateral expiratory wheeze. Cardiovascular system reveals S1, S2. No S3, no S4. No murmurs. Abdomen is soft. There is no edema. The patient is cushingoid in appearance. White count is 10.2 with 1000 eosinophils, making up 10% of his white cell count. D-dimer is 0.78. PT and PTT are normal. Sodium is 140, potassium 4.6, chloride 102, bicarb 27. Chest x-ray shows no clear infiltrate. V/Q scan is indeterminate. IMPRESSION: 1. Severe asthma with acute exacerbation. 2. Doubt pulmonary embolus. 3. Hypertension. At this point in time, keep the patient on GI and DVT prophylaxis. IV and aerosolized steroids. The patient would be a candidate for antieosinophilic treatment with a biologic such as Fasenra as he has an elevated eosinophilic count and has allergic asthma with an eosinophilic phenotype. The patient was counseled regarding his condition and this approach. We will follow him closely during his hospital stay. Appreciate the opportunity to participate in his care. DIEUDONNE / KASSANDRA: [id number] /
[2017-04-26 11:43] LABS: Glucose,Whole Blood 169 mg/dL (75-99)
[2017-04-26] MEDS: SODIUM CHLORIDE 0.9% 1,000 ML IV SCH (15:14)
[2017-04-26 16:58] LABS: Glucose,Whole Blood 153 mg/dL (75-99)
--- NOTE | 2017-04-26 17:03 | P.PN ---
Progress Note - Text Progress Note Date: 04/26/17 Presenting complaint: Short of breath History of present complaint: This is a very pleasant 72-year-old patient of Dr. Amos. 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 Chronic stable medical conditions include GERD, hyperlipidemia, hypertension, osteoarthritis, obstructive sleep apnea uses CPAP machine, and BPH. Patient on Selam had a bout of pneumonia given antibiotics completed that then had a relapse again did again give antibiotics and steroids. Has never really recovered. Patient normally sleeps up in a chair. Now presents with worsening wheezing cough. Sputum is clear. Slimy secretions through his nose. Congested. No fever. Appetite is fair. Quite a bit short of breath at rest. Today-patient states he is feeling better. Still short of breath. Decreased secretion. Get some rest. Did tolerate a diet. Sitting at the edge of the bed. is here Review of systems: Was done for constitutional, cardiovascular, GI, pulmonary. relevant finding as above Current medications reviewed that included.: DuoNeb every 4, nebulized Pulmicort, Claritin-D, IV Solu-Medrol VITAL SIGNS: 97, 108, 18, 03/27/1996, 92% on 3 L GENERAL: sitting up at the edge of the bed , less short of breath. EYES: Pupils equal. Conjunctiva normal. HEENT: External appearance of nose and ears normal, oral cavity grossly normal. NECK: JVD not raised; masses not palpable. HEART: First and second heart sounds are normal; no edema. LUNGS: Respiratory rate increased, short of breath at rest, diminished breath sounds, prolonged expiration and expiratory wheezing,. ABDOMEN: Soft, distended, nontender, liver spleen not palpable, no masses palpable. PSYCH: Alert and oriented x3; mood and affect somewhat anxiousl. MUSCULOSKELETAL: Evidence of osteoarthritis especially in the hands Investigations: White count 10.1, hemoglobin 13.9, potassium 4.1, BUN 22, creatinine 0.80 Doppler ultrasound negative for DVT Assessment: -Severe persistent asthma with acute exacerbation, likely from viral pneumonitis , slow to respond -Obstructive sleep apnea uses CPAP machine -Chronic GERD -Chronic essential hypertension Chronic hyperlipidemia -Primary osteoarthritis of multiple joints including the hands -BPH -Obesity BMI 34.9 -Patient not felt to have PE Plan: Care was discussed with the patient and at the bedside. Continue patient on IV Solu-Medrol, duo nebs, and other medications.
[2017-04-26] MEDS: BUDESONIDE 0.5 MG/2 ML NEBU INHALATION SCH (20:51)
[2017-04-26 21:33] LABS: Glucose,Whole Blood 167 mg/dL (75-99)
[2017-04-26] MEDS: MONTELUKAST 10 MG TAB PO SCH (21:50)
[2017-04-26] MEDS: PRAVASTATIN SODIUM 20 MG TAB PO SCH (21:50)
[2017-04-27] MEDS: IPRATROPIUM-ALBUTEROL 3 ML NEB INHALATION SCH ×7 (00:09→23:55)
[2017-04-27] MEDS: methylPREDNISolone SOD SUCCI 125 MG/2 ML VIAL IV SCH (06:18)
[2017-04-27 07:12] LABS: Glucose,Whole Blood 159 mg/dL (75-99)
[2017-04-27] MEDS: BUDESONIDE 0.5 MG/2 ML NEBU INHALATION SCH ×2 (07:12→20:43)
[2017-04-27] MEDS: INSULIN ASPART 100 UNIT/ML 1 ML 10 ML VIAL SQ SCH (08:23)
[2017-04-27] MEDS: METOPROLOL TARTRATE 50 MG TAB PO SCH ×2 (08:23→20:30)
[2017-04-27] MEDS: guaiFENesin 600 MG TABLET.ER PO SCH ×2 (08:23→20:30)
[2017-04-27] MEDS: ASPIRIN 81 MG PO SCH (08:24)
[2017-04-27] MEDS: HEPARIN SODIUM,PORCINE 5,000 UNIT/ML 1 ML VIAL SQ SCH ×2 (08:24→20:30)
[2017-04-27] MEDS: TAMSULOSIN 0.4 MG CAP.ER.24H PO SCH (08:24)
[2017-04-27] MEDS: LOSARTAN 50 MG TAB PO SCH (08:24)
[2017-04-27] MEDS: PANTOPRAZOLE 40 MG TABLET PO SCH ×2 (08:24→20:30)
[2017-04-27] MEDS: LORATADINE-PSEUDOEPH 5-120 MG 1 EACH TAB.ER.12H PO SCH ×2 (08:24→20:30)
[2017-04-27] MEDS: HYDROCHLOROTHIAZIDE 25 MG TAB PO SCH (08:25)
--- NOTE | 2017-04-27 09:29 | P.PN ---
Subjective Progress Note Date: 04/27/17 HPI: This is a 72-year-old male well-known to our services who came into the emergency room on 04/25/2017 with complaints of progressively worsening shortness of breath cough and wheezing that had been going on for approximately 4-5 days. He denied any fevers or chills at home. He has been treated over the last 2 months for 3 episodes of asthma with exacerbation with steroids and antibiotics. He was told he had a pneumonia one of those times. He has been to see us in the past and had been on an anti-IgE treatment with Xolair, which she stopped approximately a year ago. His sputum was clear to white/yellow. He has been having lots of nasal drainage as well. 04/26/17- patient is being seen examined and evaluated today on rounds. Patient is resting up in bed on 2 L of supplemental oxygen via nasal cannula. The patient does not utilize oxygen at home. Patient continues to state that he has been bringing up copious amounts of white/yellow phlegm. He continues to have shortness of breath with exertion and activity. He continues to have a congested cough. Venous Doppler of his bilateral lower extremity was negative for DVT. He is afebrile no further complaints. 04/27/17- patient is being seen examined and evaluated today on rounds. Upon examination the patient is ambulating in the hallway. Patient states his breathing is much better today. He has not been on any supplemental oxygen today or overnight. The patient did utilize his CPAP machine last night. He was on Solu-Medrol 60 every 6 hours and we will be switching to oral prednisone. Cough and congestion have improved as well. Objective - Vital Signs Vital signs: Vital Signs Temp 97.0 F L 04/27/17 06:21 Pulse 87 04/27/17 07:23 Resp 16 04/27/17 07:13 BP 123/81 04/27/17 06:21 Pulse Ox 93 L 04/27/17 06:21 Intake & Output 04/26/17 04/27/17 04/27/17 18:59 06:59 18:59 Intake Total 720 Output Total 600 Balance 120 Weight 97.5 kg Intake: Oral 720 Output: Urine 600 Other: Voiding Method Toilet Toilet # Voids 2 - Exam GENERAL EXAM: Alert, comfortable in no apparent distress. HEAD: Normocephalic. EYES: Normal reaction of pupils, equal size. NOSE: Slightly dry, Clear with pink turbinates. THROAT: No erythema or exudates. NECK: No masses, no JVD. CHEST: No chest wall deformity. LUNGS: Lungs noted to have scattered rhonchi throughout all with end expiratory wheezes. Bases diminished. Overall improved CVS: S1 and S2 normal with no audible mumurs, regular rhythm. ABDOMEN: No hepatosplenomegaly, normal bowel sounds, no guarding or rigidity. EXTREMITIES: No edema noted, pedal pulses palpable. CENTRAL NERVOUS SYSTEM: No focal deficits, tone is normal in all 4 extremities. - Labs CBC & Chem 7: 04/26/17 06:01 04/26/17 06:01 Labs: Abnormal Lab Results - Last 24 Hours (Table) 04/26/17 04/26/17 04/26/17 Range/Units 11:39 16:47 21:31 POC Glucose (mg/dL) 169 H 153 H 167 H (75-99) mg/dL 04/27/17 Range/Units 06:57 POC Glucose (mg/dL) 159 H (75-99) mg/dL Microbiology - Last 24 Hours (Table) 04/26/17 13:15 Gram Stain - Preliminary Sputum 04/25/17 11:38 Blood Culture - Preliminary Blood No Growth after 24 hours Assessment and Plan Assessment: Assessment Acute exacerbation of chronic severe persistent asthma Acute hypoxic respiratory failure requiring supplemental oxygen Tracheobronchitis Obstructive sleep apnea GERD Hypertension Hyperlipidemia Osteoarthritis Plan Patient could be cleared for discharge from pulmonary standpoint the near future. Steroids have been switched over to oral. Discharge oral steroid taper prescription has been given. We will follow-up with him in the outpatient setting closely, 1-2 days upon discharge Medications have been reviewed and will be continued as ordered. Sputum culture pending. Encourage incentive spirometer. saline nasal spray. Continue with pulmonary hygiene, coughing and deep breathing exercises, and supportive care. Supplemental oxygen to maintain oxygen saturations of 92% or better if needed. Continue nebulizer treatments. will be bringing in an patient's home CPAP machine to use each night. GI and DVT prophylaxis. We will continue to monitor labs/results and adjust treatment as necessary. Further recommendations pending. I performed an examination of the patient and discussed their management with the nurse practitioner. I have reviewed the nurse practitioner's note and agree with the documented findings and plan of care.
[2017-04-27] MEDS: predniSONE 20 MG TAB PO SCH (11:21)
[2017-04-27] MEDS: SODIUM CHLORIDE 0.9% 1,000 ML IV SCH (16:31)
--- NOTE | 2017-04-27 18:44 | P.PN ---
Progress Note - Text Progress Note Date: 04/27/17 Presenting complaint: Short of breath History of present complaint: This is a very pleasant 72-year-old patient of Dr. Amos. Also follows with applied researcher S/P daily. Chronic stable medical conditions include GERD, hyperlipidemia, hypertension, osteoarthritis, obstructive sleep apnea uses CPAP machine, and BPH. Patient on [place] had a bout of pneumonia given antibiotics completed that then had a relapse again did again give antibiotics and steroids. Has never really recovered. Patient normally sleeps up in a chair. Now presents with worsening wheezing cough. Sputum is clear. Slimy secretions through his nose. Congested. No fever. Appetite is fair. Quite a bit short of breath at rest. Today-breathing is getting better. Less wheezing. Slight cough. Sputum production gone down. Eating better. Off the oxygen. Up to the bathroom. Review of systems: Was done for constitutional, cardiovascular, GI, pulmonary. relevant finding as above Current medications reviewed that included.: DuoNeb every 4, nebulized Pulmicort, Claritin-D, IV [id number] switched to oral prednisone VITAL SIGNS: 97.3, 90, 18, 133/88, 93% room air GENERAL: sitting up at the edge of the bed , looking more comfortable EYES: Pupils equal. Conjunctiva normal. HEENT: External appearance of nose and ears normal, oral cavity grossly normal. NECK: JVD not raised; masses not palpable. HEART: First and second heart sounds are normal; no edema. LUNGS: Respiratory rate increased, improved air entry. Minimal wheezing. ABDOMEN: Soft, distended, nontender, liver spleen not palpable, no masses palpable. PSYCH: Alert and oriented x3; mood and affect somewhat anxiousl. MUSCULOSKELETAL: Evidence of osteoarthritis especially in the hands Investigations: Accu-Cheks noted Doppler ultrasound negative for DVT Assessment: -Severe persistent asthma with acute exacerbation, likely from viral pneumonitis , improving -Obstructive sleep apnea uses CPAP machine -Chronic GERD -Chronic essential hypertension Chronic hyperlipidemia -Primary osteoarthritis of multiple joints including the hands -BPH -Obesity BMI 34.9 -Patient not felt to have PE Plan: Overall much better. Switched to oral prednisone. Back on frequency of DuoNeb. Care was discussed with the patient. Hoping to be discharged tomorrow if continues to improve.
[2017-04-27] MEDS: PRAVASTATIN SODIUM 20 MG TAB PO SCH (20:30)
[2017-04-27] MEDS: MONTELUKAST 10 MG TAB PO SCH (20:31)
[2017-04-27 22:57] VITALS: RESP 16
[2017-04-27] MEDS: MELATONIN 3 MG TABLET PO PRN (23:30)
[2017-04-28] MEDS: MELATONIN 3 MG TABLET PO PRN (01:06)
[2017-04-28] MEDS: IPRATROPIUM-ALBUTEROL 3 ML NEB INHALATION SCH ×3 (03:34→11:09)
[2017-04-28] MEDS: BUDESONIDE 0.5 MG/2 ML NEBU INHALATION SCH (07:18)
[2017-04-28] MEDS: HEPARIN SODIUM,PORCINE 5,000 UNIT/ML 1 ML VIAL SQ SCH (08:45)
[2017-04-28] MEDS: METOPROLOL TARTRATE 50 MG TAB PO SCH (08:46)
[2017-04-28] MEDS: guaiFENesin 600 MG TABLET.ER PO SCH (08:46)
[2017-04-28] MEDS: predniSONE 20 MG TAB PO SCH (08:46)
[2017-04-28] MEDS: LOSARTAN 50 MG TAB PO SCH (08:46)
[2017-04-28] MEDS: LORATADINE-PSEUDOEPH 5-120 MG 1 EACH TAB.ER.12H PO SCH (08:46)
[2017-04-28] MEDS: ASPIRIN 81 MG PO SCH (08:46)
[2017-04-28] MEDS: HYDROCHLOROTHIAZIDE 25 MG TAB PO SCH (08:47)
[2017-04-28] MEDS: PANTOPRAZOLE 40 MG TABLET PO SCH (08:47)
[2017-04-28] MEDS: TAMSULOSIN 0.4 MG CAP.ER.24H PO SCH (08:47)
[2017-04-28] MEDS: SODIUM CHLORIDE 0.9% 1,000 ML IV SCH (09:57)
[2017-04-28 15:22] VITALS: BP 132/68; PULSE 78; TEMP 96.4
--- NOTE | 2017-04-28 19:14 | P.PN ---
Subjective Progress Note Date: 04/28/17 Principal diagnosis: Acute exacerbation of COPD, chronic persistent asthma with acute exacerbation, acute hypoxic respiratory failure related to above, tracheobronchitis, obstructive sleep apnea, GERD, hypertension hypertensive cardiovascular disease , dyslipidemia 04/28/2017, patient seen eval reexamined during the morning rounds this is a delayed dictation clinically patient has been doing slightly better but still get short of breath on activity and exertion overall severity of breathing difficulty is improved, patient has expressed his desire to go home his labs are reviewed medications reviewed mild leukocytosis likely related to high-dose steroids, patient denies any chest pain denies sputum production able to get up and move around now Ammann his vitals are stable oxygen saturation improved to 96% at room air and he is off of oxygen Objective - Vital Signs Vital signs: Vital Signs Temp 96.4 F L 04/28/17 15:00 Pulse 78 04/28/17 15:00 Resp 16 04/28/17 15:00 BP 132/68 04/28/17 15:00 Pulse Ox 96 04/28/17 15:00 Intake & Output 04/28/17 04/28/17 04/29/17 06:59 18:59 06:59 Intake Total 440 Balance 440 Intake: Oral 440 Other: Voiding Method Toilet # Voids 2 - Exam ENERAL EXAM: Alert, comfortable in no apparent distress. Sitting upright on the bed HEAD: Normocephalic. EYES: Normal reaction of pupils, equal size. NOSE: Slightly dry, Clear with pink turbinates. THROAT: No erythema or exudates. NECK: No masses, no JVD. CHEST: No chest wall deformity. LUNGS: Lungs noted to have scattered rhonchi throughout all with end expiratory wheezes. Bases diminished. CVS: S1 and S2 normal with no audible mumurs, regular rhythm. ABDOMEN: No hepatosplenomegaly, normal bowel sounds, no guarding or rigidity. EXTREMITIES: No edema noted, pedal pulses palpable. CENTRAL NERVOUS SYSTEM: No focal deficits, tone is normal in all 4 extremities. - Labs CBC & Chem 7: 04/26/17 06:01 04/26/17 06:01 Labs: Microbiology - Last 24 Hours (Table) 04/25/17 11:38 Blood Culture - Preliminary Blood No Growth after 72 hours 04/26/17 13:15 Gram Stain - Final Sputum Sputum Culture - Final Assessment and Plan Assessment: Acute exacerbation of chronic severe persistent asthma Acute hypoxic respiratory failure requiring supplemental oxygen, however now off of it with a stable oxygen saturation Tracheobronchitis Obstructive sleep apnea GERD Hypertension Hyperlipidemia Osteoarthritis Plan: Discussed with primary service can be discharged home on oral antibiotics breathing treatments and oral prednisone with follow-up with primary filling carrier in outpatient setting Time with Patient: Less than 30
--- NOTE | 2017-04-28 21:48 | DS ---
DISCHARGE SUMMARY DATE OF ADMISSION: 04/25/2017. DATE OF DISCHARGE: 04/28/2017 FINAL DIAGNOSES: 1. Acute exacerbation of severe persistent asthma, likely from viral pneumonitis. Cannot rule out a component. 2. Obstructive sleep apnea. Patient does use CPAP machine. 3. Chronic gastroesophageal reflux disease. 4. Chronic essential hypertension. 5. Chronic hyperlipidemia. 6. Primary osteoarthritis in multiple joints, including the hands. 7. Benign prostatic hypertrophy. 8. Obesity; body mass index 34.9. HOSPITAL COURSE: This pleasant gentleman has had infections on and off since . He was antibiotic, steroids, presented with asthma exacerbation and nasal congestion. The patient was given a burst of steroids, antibiotics, nebulized bronchodilators, antihistaminic decongestants. Doing much better at the time of discharge. Now pulse ox is good on room air. Up and about. PHYSICAL EXAMINATION: LUNGS: Improved air entry. CARDIOVASCULAR: First and second sounds normal. PE was ruled out. CONSULTATION: Dr. Pb Wilkerson from [facility]. DISCHARGE MEDICATIONS: 1. Cozaar 100 mg p.o. daily. 2. Lopressor 50 mg p.o. b.i.d. 3. Prilosec 20 mg b.i.d. 4. Ventolin 2.5 q.4 p.r.n. 5. Pravachol 20 mg at bedtime. 6. CO-Q10 200 mg p.o. daily. 7. Qvar 80 two puffs b.i.d. 8. Pulmicort 0.5 nebulizer b.i.d. 9. Flomax 0.4 mg p.o. daily. 10.Prednisone taper. 11.Aspirin 81 mg p.o. daily. 12.Atrovent 0.5 nebulizer t.i.d. 13.Claritin-D 1 tablet p.o. q.12; 10 tablets. 14.Melatonin 3 mg at bedtime p.r.n. 15.Singulair 10 mg p.o. at bedtime. Follow up with Dr. Jerri Dietz in 3 days. Follow up with Dr. Abdirahman Amos on 04/30/17. Patient to continue with CPAP at home. MMODL / IJN: [id number] /
== END 2017-04-28 16:03 | disposition home or self-care (01) | DRG 202 ==
LOC: EC 11:12 → 6SEL 15:45 → 4MS4W 04-26 22:14
PROVIDERS: ADMIT Hospitalist; ATTEND Hospitalist
DX: J45.51 Severe persistent asthma with (acute) exacerbation (principal); J12.9 Viral pneumonia, unspecified; J96.01 Acute respiratory failure with hypoxia; J44.0 Chronic obstructive pulmonary disease with (acute) lower respiratory infection; J44.1 Chronic obstructive pulmonary disease with (acute) exacerbation; I11.9 Hypertensive heart disease without heart failure; E66.9 Obesity, unspecified; E78.5 Hyperlipidemia, unspecified; G47.33 Obstructive sleep apnea (adult) (pediatric); K21.9 Gastro-esophageal reflux disease without esophagitis; M15.9 Polyosteoarthritis, unspecified; N40.0 Benign prostatic hyperplasia without lower urinary tract symptoms; R79.1 Abnormal coagulation profile; T38.0X5A Adverse effect of glucocorticoids and synthetic analogues, initial encounter; D72.828 Other elevated white blood cell count; Z68.34 Body mass index [BMI] 34.0-34.9, adult; Z79.82 Long term (current) use of aspirin; Z79.899 Other long term (current) drug therapy; Z82.49 Family history of ischemic heart disease and other diseases of the circulatory system; Z83.3 Family history of diabetes mellitus; Z87.891 Personal history of nicotine dependence; Z91.013 Allergy to seafood; Z91.018 Allergy to other foods
CPT/HCPCS: 36415; 71046; 78582; 80048; 80053; 82550; 82553; 83605; 83735; 83880; 84484; 85025; 85379; 85610; 85730; 87040; 87070; 87205; 87502; 93005; 93970; 94640; 94760; 96361; 96365; 96372; 96375; 96376; 99291

== ENCOUNTER → 2017-07-30 | Outpatient (CLI) | payer MEDICARE, BC ==
[2017-07-30 19:13] LABS: Thyroid Peroxidase Antibodies 30.3 U/mL (0.0-60.0)
[2017-07-30 19:15] LABS: Insulin Level 10.9 mIU/mL (3.0-25.0)
[2017-07-31 10:45] LABS: Ceruloplasmin 23.1 mg/dL (20.0-60.0)
== END | disposition home or self-care (01) ==
LOC: LABWHC1 13:29
DX: Z51.81 Encounter for therapeutic drug level monitoring (principal); Z79.01 Long term (current) use of anticoagulants
CPT/HCPCS: 36415; 82390; 82607; 82947; 83525; 86038; 86376; 86800

== ENCOUNTER → 2020-06-26 | Outpatient (CLI) | payer MEDICARE, BC ==
--- NOTE | 2020-06-26 16:26 | XR ---
EXAMINATION TYPE: XR tibia fibula RT DATE OF EXAM: 06/26/2020 CLINICAL HISTORY: Injury to leg 3 weeks ago with pain and swelling and redness. TECHNIQUE: Two views of the right leg are obtained. COMPARISON: None. FINDINGS: There is no acute fracture or dislocation seen in the right tibia or fibula. Osseous stru ctures are demineralized. The right knee and ankle joints appear within normal limits. Fairly moderat e diffuse subcutaneous edema. No suspicious cortical destruction or abnormal periosteal reaction to s uggest acute osteomyelitis. IMPRESSION: As above.
== END | disposition home or self-care (01) ==
LOC: RADXRMAIN 15:59
PROVIDERS: ATTEND Family Medicine
DX: L97.909 Non-pressure chronic ulcer of unspecified part of unspecified lower leg with unspecified severity (principal)